=== PATIENT | female | born 1950 | race Two or more races ===

== ENCOUNTER 2020-09-22 14:01 | Emergency (ER) | payer OTHER ==
[~2020-09-22] VITALS: Ht 152.4 cm; Wt 108.0 kg
[~2020-09-22 14:01] MED LIST: ASA-EC81 MG; ATENOLOL100 MG; B COMPLEX #11 TAB; CAPOTEN100 MG; ENALAPRIL MALEA20 MG; HYDROCHLOROTHIA25 GM; LOPRESSOR25 MG; MELADOX3 MG; PROCARDIA90 MG/BLIS; SIMVASTATIN40 MG; VISTARIL25 MG PO
[2020-09-22] MEDS ORDERED: KEPPRA750 MG (14:56)
[2020-09-22] MEDS ORDERED: ZOLOFT50 MG (14:57)
== END 2020-09-23 07:33 | disposition home or self-care (01) ==
LOC: ER 14:01
DX: I87.2 Venous insufficiency (chronic) (peripheral) (principal); M17.11 Unilateral primary osteoarthritis, right knee; M25.561 Pain in right knee

== ENCOUNTER 2022-11-21 22:20 | Emergency (ER) | payer OTHER ==
[~2022-11-21] VITALS: Ht 152.4 cm; Wt 93.0 kg
[~2022-11-21 22:20] MED LIST changes: +KEPPRA750 MG; +ZOLOFT50 MG
== END 2022-11-21 23:42 | disposition home or self-care (01) ==
LOC: ER 22:20
DX: M62.838 Other muscle spasm (principal)

== ENCOUNTER 2023-09-29 16:32 | Emergency (ER) | payer OTHER ==
[~2023-09-29] VITALS: Ht 157.5 cm; Wt 96.2 kg
[2023-09-29] MEDS ORDERED: METROPOLOL (16:42)
[2023-09-29] MEDS ORDERED: NAPROXEN500 MG PO (21:30)
== END 2023-09-29 21:56 | disposition home or self-care (01) ==
LOC: ER 16:32
DX: M17.12 Unilateral primary osteoarthritis, left knee (principal); M25.562 Pain in left knee; E11.9 Type 2 diabetes mellitus without complications; I10 Essential (primary) hypertension
CPT/HCPCS: 73560; 96372; 99284; J1885